=== PATIENT | female | born 1995 | race Two or more races ===

== ENCOUNTER 2023-06-18 13:15 | Outpatient (CLI) | payer OTHER ==
[2023-06-18 22:24] LABS: CHLAMYDIA TRACHOMATIS DNA NEGATIVE (NEGATIVE); NEISSERIA GONORRHOEAE DNA NEGATIVE (NEGATIVE)
[2023-06-18 23:07] LABS: BACTERIAL VAGINOSIS DNA POSITIVE (NEGATIVE); CANDIDA GLABRATA DNA NEGATIVE (NEGATIVE); CANDIDA GROUP DNA POSITIVE (NEGATIVE); CANDIDA KRUSEI DNA NEGATIVE (NEGATIVE); TRICHOMONAS VAGINALIS DNA NEGATIVE (NEGATIVE)
[2023-06-20 04:07] LABS: RPR Non Reactive (Non Reactive)
[2023-06-20 09:08] LABS: HSV 2 IGG TYPE SPEC 1.18 index (0.00-0.90)
[2023-06-20 10:08] LABS: HCV AB Non Reactive (Non Reactive)
[2023-06-21 06:08] LABS: HIV SCREEN 4TH GENERATION Non Reactive (Non Reactive)
== END 2023-06-18 13:30 | disposition home or self-care (01) ==
LOC: LAB.N 13:15
PROVIDERS: ATTEND Family Medicine
DX: N39.0 Urinary tract infection, site not specified (principal); N90.89 Other specified noninflammatory disorders of vulva and perineum
CPT/HCPCS: 36415; 81514; 86592; 86695; 86696; 86803; 87086; 87389; 87491; 87529; 87591; 87661